=== PATIENT | female | born 1975 | race Caucasian/White ===

== ENCOUNTER 2017-10-30 13:09 | Emergency (ER) | payer OTHER ==
[~2017-10-30] VITALS: Ht 149.9 cm; Wt 64.9 kg
--- NOTE | 2017-10-30 14:20 | NUR ---
RECIEVED PT AT THIS TIME. ASSISTED TO ED BED 07 FROM WAITING ROOM A/OX4 C/O HEADACHE SINCE LAST NIGHT 1100. PT STS SHE HAS A H/O MIGRAINE HEADACHE BUT IT DOES NOT USUALLY LAST LONG LIKE THIS. VSS NAD RR EVEN AND UNLABORED. SKIN IS WARM AND NON DIAPHROETIC. PLACED ON CONT MONITORING. SEEN AND EVALUATED BY ASAD QUINTERO. WILL CONT TO MONITOR
[2017-10-30] MEDS ORDERED: ONDANSETRON HCL/PF 4 MG/2 ML VIAL ONE (14:23)
[2017-10-30] MEDS ORDERED: METOCLOPRAMIDE HCL 10 MG/2 ML VIAL ONE (14:23)
[2017-10-30] MEDS ORDERED: diphenhydrAMINE HCL 50 MG/ML VIAL ONE (14:23)
[2017-10-30] MEDS ORDERED: METOCLOPRAMIDE HCL 10 MG/2 ML VIAL IV ONE (14:30)
[2017-10-30] MEDS ORDERED: diphenhydrAMINE HCL 50 MG/ML VIAL IV ONE (14:30)
[2017-10-30] MEDS ORDERED: IV NS 0.9% 1,000 ML BAG IV ONE (14:30)
[2017-10-30] MEDS ORDERED: ONDANSETRON HCL/PF 4 MG/2 ML VIAL IVP ONE (14:30)
--- NOTE | 2017-10-30 15:45 | NUR ---
PO CHALLENGE TOLERATED
--- NOTE | 2017-10-30 15:49 | NUR ---
IV removed. Catheter intact and site benign. Pressure and 4x4 applied to site. No bleeding noted.Patient discharged to home in stable condition. Written and verbal after care instructions given. Patient verbalizes understanding of instruction.
[2017-10-30 15:51] VITALS: BP 118/68
== END 2017-10-30 15:51 | disposition home or self-care (01) ==
LOC: ER 13:12
DX: G43.909 Migraine, unspecified, not intractable, without status migrainosus (principal); Z90.710 Acquired absence of both cervix and uterus
CPT/HCPCS: A4606; J1200; J2405; J2765; J7030; Z7610